=== PATIENT | female | born 1940 | race Caucasian/White ===

== ENCOUNTER 2018-12-07 15:51 | Inpatient (IN) | payer MEDICARE, OTHER ==
[~2018-12-07] VITALS: Ht 157.5 cm; Wt 74.8 kg
[~2018-12-07 15:51] MED LIST changes: -ALBU90OI INH; -Ferosul325 MG PO; -PANT40 PO
[2018-12-07 16:48] LABS: BASOPHILS ABSOLUTE AUTO 0.05 K/mm3 (0.00-0.23); BASOPHILS PERCENT AUTO 1 % (0-2); EOSINOPHILS ABSOLUTE AUTO 0.33 K/mm3 (0.00-0.68); EOSINOPHILS PERCENT AUTO 4 % (0-6); Hemoglobin 6.4 g/dL (11.5-16.0); IMMATURE GRAN ABSOLUTE AUTO 0.07 K/mm3 (0.00-0.10); IMMATURE GRAN PERCENT AUTO 1 % (0-1); LYMPHOCYTES ABSOLUTE AUTO 1.58 K/mm3 (0.84-5.20); LYMPHOCYTES PERCENT AUTO 19 % (21-46); MONOCYTES ABSOLUTE AUTO 0.52 K/mm3 (0.16-1.47); MONOCYTES PERCENT AUTO 6 % (4-13); Mean Corpuscular HGB 23.1 pg (26.0-34.0); Mean Corpuscular HGB Conc 26.7 g/dL (31.5-36.5); Mean Platelet Volume 10.3 fL (9.1-12.4); NEUTROPHILS ABSOLUTE AUTO 5.95 K/mm3 (1.96-9.15); NEUTROPHILS PERCENT AUTO 70 % (41-73); Platelet Count 417 K/mm3 (150-400); RDW Coefficient Variation 15.9 % (11.7-14.2); RDW Standard Deviation 49.9 fL (35.1-46.3); Red Blood Cell Count 2.77 M/mm3 (3.80-5.20)
[2018-12-07 16:50] LABS: Mean Corpuscular Volume 87 fL (80-100)
[2018-12-07 17:11] LABS: Alanine Aminotransfer (ALT/SGP 13 U/L (12-78); Albumin, Blood 3.7 g/dL (3.4-5.0); Albumin/Globulin Ratio 1.1 (0.8-1.8); Alk Phos 48 U/L (50-136); Anion Gap 6 mmol/L (6-16); Aspartate Aminotrans (AST/SGOT 12 U/L (12-37); Bilirubin, Total 0.4 mg/dL (0.1-1.0); Blood Urea Nitrogen 22 mg/dL (8-24); Bun/Creatinine Ratio 26.5 (12.0-20.0); CO2, Blood 29 mmol/L (21-32); Calcium, Blood 9.2 mg/dL (8.5-10.1); Chloride, Blood 106 mmol/L (98-108); Creatinine, Blood 0.83 mg/dL (0.40-1.00); Globulin, Blood 3.5 g/dL (2.2-4.0); Glomerular Filtration Rate >60 (60-); Glucose, Blood 111 mg/dL (70-99); Potassium, Blood 4.1 mmol/L (3.5-5.5); Sodium, Blood 141 mmol/L (136-145); Total Protein, Blood 7.2 g/dL (6.4-8.2)
[2018-12-07 17:14] LABS: Percent Saturation 1.9 % (15.0-50.0)
[2018-12-07] MEDS ORDERED: ALBU90OI INH (17:34)
--- NOTE | 2018-12-08 00:55 | NUR ---
PT HAS COMPLETED 2 UNITS PRBC W/OUT ADVERSE EFFECTS. VSS, NO COMPLAINTS, WILL CONTINUE TO MONITOR
[2018-12-08 02:10] LABS: Alanine Aminotransfer (ALT/SGP 11 U/L (12-78); Albumin, Blood 3.3 g/dL (3.4-5.0); Albumin/Globulin Ratio 1.1 (0.8-1.8); Alk Phos 46 U/L (50-136); Anion Gap 6 mmol/L (6-16); Aspartate Aminotrans (AST/SGOT 9 U/L (12-37); Blood Urea Nitrogen 19 mg/dL (8-24); Bun/Creatinine Ratio 22.1 (12.0-20.0); CO2, Blood 29 mmol/L (21-32); Calcium, Blood 8.5 mg/dL (8.5-10.1); Chloride, Blood 108 mmol/L (98-108); Creatinine, Blood 0.86 mg/dL (0.40-1.00); Glomerular Filtration Rate >60 (60-); Glucose, Blood 91 mg/dL (70-99); Potassium, Blood 3.9 mmol/L (3.5-5.5); Sodium, Blood 143 mmol/L (136-145); Total Protein, Blood 6.3 g/dL (6.4-8.2)
[2018-12-08 02:15] LABS: BASOPHILS ABSOLUTE AUTO 0.05 K/mm3 (0.00-0.23); BASOPHILS PERCENT AUTO 1 % (0-2); EOSINOPHILS ABSOLUTE AUTO 0.32 K/mm3 (0.00-0.68); EOSINOPHILS PERCENT AUTO 4 % (0-6); Hematocrit 28.9 % (33.0-51.0); Hematocrit 29.2 % (33.0-51.0); Hemoglobin 8.5 g/dL (11.5-16.0); Hemoglobin 8.6 g/dL (11.5-16.0); IMMATURE GRAN PERCENT AUTO 1 % (0-1); LYMPHOCYTES PERCENT AUTO 18 % (21-46); MONOCYTES ABSOLUTE AUTO 0.47 K/mm3 (0.16-1.47); MONOCYTES PERCENT AUTO 6 % (4-13); Mean Corpuscular HGB 25.5 pg (26.0-34.0); Mean Corpuscular HGB Conc 29.1 g/dL (31.5-36.5); Mean Corpuscular Volume 88 fL (80-100); Mean Platelet Volume 10.5 fL (9.1-12.4); NEUTROPHILS ABSOLUTE AUTO 5.07 K/mm3 (1.96-9.15); NEUTROPHILS PERCENT AUTO 69 % (41-73); Platelet Count 312 K/mm3 (150-400); RDW Coefficient Variation 16.1 % (11.7-14.2); RDW Standard Deviation 51.2 fL (35.1-46.3); Red Blood Cell Count 3.33 M/mm3 (3.80-5.20); White Blood Cell Count 7.31 K/mm3 (4.00-11.30)
--- NOTE | 2018-12-08 05:26 | NUR ---
VSS, AFEBRILE, A/O, PLEASANT AND COOPERATIVE. PT AMBULATES WELL BUT REPORTS FEELING VERY WEAK, SBA TO BR, 2 UNITS OF PRBC TRANSFUSED PER ORDER, PT TOELRATED TRANSFUSION W/OUT ADVERSE EFFECTS, NO OBVIOUS SIGNS OF BLEEDING NOTED. WILL REPORT TO ON-COMING SHIFT.
[2018-12-08 08:59] LABS: Hematocrit 29.6 % (33.0-51.0); Hemoglobin 8.7 g/dL (11.5-16.0)
[2018-12-08 13:34] LABS: Hematocrit 31.6 % (33.0-51.0); Hemoglobin 9.2 g/dL (11.5-16.0)
--- NOTE | 2018-12-08 18:10 | NUR ---
SHIFT SUMMARY NO ACUTE CHANGES. PATIENT DENIES PAIN, NAUSEA, OR SHORTNESS OF BREATH. PATIENT TO HAVE ENDOSCOPY AND COLONOSCOPY TOMORROW. PATIENT WORKING ON [place] NOW. DR. MCNEIL MET WITH PATIENT AND FAMILY TODAY. PATIENT UP SBA TO BR. CALL LIGHT IN REACH, WILL CONTINUE TO MONITOR.
[2018-12-08 20:19] LABS: Hematocrit 30.3 % (33.0-51.0); Hemoglobin 8.8 g/dL (11.5-16.0)
[2018-12-09 05:13] LABS: BASOPHILS ABSOLUTE AUTO 0.02 K/mm3 (0.00-0.23); BASOPHILS PERCENT AUTO 0 % (0-2); EOSINOPHILS ABSOLUTE AUTO 0.18 K/mm3 (0.00-0.68); EOSINOPHILS PERCENT AUTO 3 % (0-6); Hematocrit 27.6 % (33.0-51.0); IMMATURE GRAN ABSOLUTE AUTO 0.04 K/mm3 (0.00-0.10); IMMATURE GRAN PERCENT AUTO 1 % (0-1); LYMPHOCYTES ABSOLUTE AUTO 0.86 K/mm3 (0.84-5.20); LYMPHOCYTES PERCENT AUTO 13 % (21-46); MONOCYTES ABSOLUTE AUTO 0.39 K/mm3 (0.16-1.47); MONOCYTES PERCENT AUTO 6 % (4-13); Mean Corpuscular HGB 26.1 pg (26.0-34.0); Mean Corpuscular Volume 90 fL (80-100); Mean Platelet Volume 10.6 fL (9.1-12.4); NEUTROPHILS ABSOLUTE AUTO 5.04 K/mm3 (1.96-9.15); NEUTROPHILS PERCENT AUTO 77 % (41-73); Platelet Count 266 K/mm3 (150-400); RDW Coefficient Variation 16.3 % (11.7-14.2); RDW Standard Deviation 53.8 fL (35.1-46.3); Red Blood Cell Count 3.06 M/mm3 (3.80-5.20); White Blood Cell Count 6.53 K/mm3 (4.00-11.30)
[2018-12-09 05:35] LABS: Anion Gap 8 mmol/L (6-16); Blood Urea Nitrogen 10 mg/dL (8-24); CO2, Blood 25 mmol/L (21-32); Calcium, Blood 8.1 mg/dL (8.5-10.1); Chloride, Blood 113 mmol/L (98-108); Creatinine, Blood 0.67 mg/dL (0.40-1.00); Glomerular Filtration Rate >60 (60-); Glucose, Blood 88 mg/dL (70-99); Potassium, Blood 3.6 mmol/L (3.5-5.5); Sodium, Blood 146 mmol/L (136-145)
--- NOTE | 2018-12-09 05:50 | NUR ---
SHIFT SUMMARY PT PLEASANT AND COOPERATIVE. PT DRANK ALMOST ALL OF HER GOLYTELY BOWEL PREP, ONLY LEAVING A SMALL AMOUNT IN THE CONTAINER STATING THAT SHE "COULDN'T DRINK ANYMORE". STOOL WATERY AND LIGHT BROWN, ALMOST COMPLETELY CLEAR. NO BLOOD NOTED IN STOOL. PT NPO SINCE MIDNIGHT FOR COLONOSCOPY/ENDOSCOPY TODAY. PT DENIED ANY DIZZINESS THIS EVENING. AMBULATED INDEPENDENTLY TO THE BSC. NEEDS SBA IF GOING ANY FURTHER. DENIES ANY PAIN OR NAUSEA. LUNG SOUNDS WITH SOME CRACKLES IN THE BASES. RT RECOMMENDING PT MIGHT POSSIBLY NEED LASIX. PT IN NO ACUTE RESPIRATORY DISTRESS, WILL PASS ON TO DAY SHIFT TO SPEAK WITH DAY HOSPITALIST. OTHERWISE NO ACUTE CHANGES. VITAL SIGNS STABLE. WILL CONTINUE TO MONITOR.
--- NOTE | 2018-12-09 07:40 | NUR ---
INTO [facility] FROM [facility] FLOOR RECIEVED REPORT ADN ADMISSION TO UNIT STARTED. Patient confirms NPO status and agrees with scheduled surgery.
[2018-12-09] MEDS ORDERED: PANT40 PO (12:51)
[2018-12-09] MEDS ORDERED: Ferosul325 MG PO (12:56)
--- NOTE | 2018-12-09 14:06 | NUR ---
PT DISCHARGED PT DISCAHRGED AT 1345. PT IN STABLE CONDITION WITH VSS. PT & FAMILY EDUCATED ON DC INSTRUCTIONS, NEW MEDS, & FOLLOW UP APPOINTMENTS. PT STATED NO FURTHER QUESTIONS. PT WHEELED OUT & DRIVEN HOME BY FAMILY.
== END 2018-12-09 13:45 | disposition home or self-care (01) | DRG 379 ==
LOC: ER 15:51 → MEDS 17:38 → ENPENDDIS 12-09 12:28 → MEDS 12-09 13:45
PROVIDERS: Family Medicine; Internal Medicine Gastroenterology; Physician Assistant; ADMIT Internal Medicine Endocrinology, Diabetes & Metabolism
PROC: 30233N1 Transfusion of Nonautologous Red Blood Cells into Peripheral Vein, Percutaneous Approach (ICD-10-PCS; 2018-12-07)
PROC: 0DJ08ZZ Inspection of Upper Intestinal Tract, Via Natural or Artificial Opening Endoscopic (ICD-10-PCS; principal; 2018-12-09 08:00)
PROC: 0W3P8ZZ Control Bleeding in Gastrointestinal Tract, Via Natural or Artificial Opening Endoscopic (ICD-10-PCS; 2018-12-09 08:00)
DX: K57.31 Diverticulosis of large intestine without perforation or abscess with bleeding (principal); K31.811 Angiodysplasia of stomach and duodenum with bleeding; D50.9 Iron deficiency anemia, unspecified; I10 Essential (primary) hypertension; E11.9 Type 2 diabetes mellitus without complications; J44.9 Chronic obstructive pulmonary disease, unspecified; Z99.81 Dependence on supplemental oxygen; Z87.891 Personal history of nicotine dependence; K22.2 Esophageal obstruction; K44.9 Diaphragmatic hernia without obstruction or gangrene; K64.8 Other hemorrhoids; I99.8 Other disorder of circulatory system; K57.30 Diverticulosis of large intestine without perforation or abscess without bleeding
CPT/HCPCS: 36415; 36416; 36430; 80048; 80053; 82728; 82947; 83540; 83550; 85014; 85018; 85025; 86850; 86900; 86901; 86923; 88305; 88342; 93005; 93010; 94640; 94760; 96374; 99285-25; C9113; J2704; J7030; J7120; P9016

== ENCOUNTER → 2018-12-07 | Outpatient (CLI) | payer MEDICARE, OTHER ==
[~2018-12-07] MED LIST: ALBU90OI INH; ASPI81CH PO; FENO54 PO; Ferosul325 MG PO; LOVA40 PO; METF500C PO; PANT40 PO; SERT100 PO; Ziac 2.5-6.251 EACH PO; Zyloprim300 MG PO
[2018-12-07 15:29] LABS: Hematocrit 21.5 % (33.0-51.0)
[2018-12-07 16:28] LABS: Hemoglobin 5.9 g/dL (11.5-16.0)
== END ==
LOC: LAB SHORT 15:26 → LAB EV 15:26
PROVIDERS: Physician Assistant
DX: D50.9 Iron deficiency anemia, unspecified (principal)
CPT/HCPCS: 85014; 85018

== ENCOUNTER → 2019-02-26 | Outpatient (CLI) | payer MEDICARE, OTHER ==
[~2019-02-26] MED LIST changes: +ALBU90OI INH; +Ferosul325 MG PO; +PANT40 PO
[2019-02-27 05:55] LABS: Stool Occult Bld Immuno 1 Negative (NEGATIVE)
== END | disposition home or self-care (01) ==
LOC: LAB EV 12:45
PROVIDERS: Internal Medicine Gastroenterology
DX: D50.9 Iron deficiency anemia, unspecified (principal)
CPT/HCPCS: 82274

== ENCOUNTER → 2019-02-27 | Outpatient (CLI) | payer MEDICARE, OTHER ==
[2019-02-28 07:43] LABS: Stool Occult Bld Immuno 1 Negative (NEGATIVE)
== END | disposition home or self-care (01) ==
LOC: LAB EV 13:00
PROVIDERS: Internal Medicine Gastroenterology
DX: D50.9 Iron deficiency anemia, unspecified (principal)
CPT/HCPCS: 82274

== ENCOUNTER 2022-06-30 09:22 | Inpatient (IN) | payer MEDICARE, OTHER ==
[~2022-06-30] VITALS: Ht 165.1 cm; Wt 71.4 kg
--- NOTE | 2022-06-30 18:43 | NUR ---
PT DENIES NEED FOR PAIN MEDS AT THIS TIME. REPORTS PAIN IS CURRENTLY 3/10 TO LEFT HIP AND LEFT SHOULDER. ICE IN PLACE TO LEFT SHOULDER. PT NPO AFTER MIDNIGHT FOR SURGERY IN AM
[2022-07-01 04:30] LABS: BASOPHILS ABSOLUTE AUTO 0.06 K/mm3 (0.00-0.23); BASOPHILS PERCENT AUTO 1 % (0-2); EOSINOPHILS ABSOLUTE AUTO 0.16 K/mm3 (0.00-0.68); EOSINOPHILS PERCENT AUTO 2 % (0-6); Hematocrit 32.4 % (33.0-51.0); Hemoglobin 10.6 g/dL (11.5-16.0); IMMATURE GRAN ABSOLUTE AUTO 0.06 K/mm3 (0.00-0.10); IMMATURE GRAN PERCENT AUTO 1 % (0-1); LYMPHOCYTES ABSOLUTE AUTO 1.27 K/mm3 (0.84-5.20); LYMPHOCYTES PERCENT AUTO 12 % (21-46); MONOCYTES ABSOLUTE AUTO 0.73 K/mm3 (0.16-1.47); MONOCYTES PERCENT AUTO 7 % (4-13); Mean Corpuscular HGB 31.3 pg (26.0-34.0); Mean Corpuscular HGB Conc 32.7 g/dL (31.5-36.5); Mean Corpuscular Volume 96 fL (80-100); Mean Platelet Volume 10.8 fL (9.1-12.4); NEUTROPHILS ABSOLUTE AUTO 8.44 K/mm3 (1.96-9.15); NEUTROPHILS PERCENT AUTO 79 % (41-73); Platelet Count 150 K/mm3 (150-400); RDW Coefficient Variation 13.9 % (11.7-14.2); RDW Standard Deviation 48.4 fL (35.1-46.3); Red Blood Cell Count 3.39 M/mm3 (3.80-5.20); White Blood Cell Count 10.72 K/mm3 (4.00-11.30)
[2022-07-01 04:45] LABS: Magnesium, Blood 2.3 mg/dL (1.6-2.4)
[2022-07-01 04:46] LABS: Albumin, Blood 3.4 g/dL (3.4-5.0); Anion Gap 7 mmol/L (6-16); Blood Urea Nitrogen 33 mg/dL (8-24); Bun/Creatinine Ratio 24.3 (12.0-20.0); CO2, Blood 31 mmol/L (21-32); Calcium, Blood 9.3 mg/dL (8.5-10.1); Chloride, Blood 99 mmol/L (98-108); Creatinine, Blood 1.36 mg/dL (0.40-1.00); Glomerular Filtration Rate 39 (60-); Glucose, Blood 133 mg/dL (70-99); Phosphorus, Blood 4.3 mg/dL (2.5-4.9); Potassium, Blood 4.3 mmol/L (3.5-5.5); Sodium, Blood 137 mmol/L (136-145)
--- NOTE | 2022-07-01 05:40 | NUR ---
BEVEL OPERATOR SUMMARY NO ACUTE CHANGES. PT AAOX4 AND VERY PLEASANT. MAKES NEEDS KNOWN. MEDICATED FOR PAIN X1 WITH TYLENOL AND X1 WITH IV MORPHINE 1MG. PT RESPONDED WELL TO MORPHINE AND HAS BEEN ABLE TO REST. INCONTINENT OF URINE, ATTENDS CHANGED NEEDED. NPO SINCE MIDNIGHT ASIDE FROM DOSE OF TYLENOL FOR HIP SURGERY LATER TODAY. PRE SURGICAL WIPE DOWN COMPLETED. VSS, WILL CONTINUE TO MONITOR.
--- NOTE | 2022-07-01 12:06 | NUR ---
1137 to or. pts daughter, madelin at bedside
--- NOTE | 2022-07-01 15:03 | NUR ---
returned to room. pt drowsy, answers questions appropriately. left hip aquacell clean dry and intact. pt moves bilat legs spontaneously. bilat feet cool with capillary refill of less than 3 seconds. pt denies numbness or tingling. left arm sling in place, fingers cool denies numbness or tingling, wiggles fingers when asked to do so. pt reports pain is adequately controlled. pts daughter at bedside
--- NOTE | 2022-07-01 15:09 | NUR ---
WHILE IN PACU SHE WAS PLEASANT ORIENTED TO PLACE UNDERSTANDS SHE HAS HAD HER HIP FIXED. BP FLUCTUATES BROADLY PT FEELS FINE T/O THESE CHANGES . LOOKING AT HER RECORD THIS IS NOT NEW FOR HER .
--- NOTE | 2022-07-01 17:05 | NUR ---
PT REPORTS PAIN ADEQUATELY CONTROLLED . OOB TO COMMODE WITH 1 PERSON ASSIST, PER MAGNETO ELECTRICIAN PT SOB WITH ACTIVITY BUTNSTATED THAT IT WAS HER USUAL LEVEL OF SOB. LEFT HIP DRESSING DRY AND INTACT.
[2022-07-02 04:58] LABS: BASOPHILS ABSOLUTE AUTO 0.12 K/mm3 (0.00-0.23); BASOPHILS PERCENT AUTO 1 % (0-2); EOSINOPHILS ABSOLUTE AUTO 0.01 K/mm3 (0.00-0.68); EOSINOPHILS PERCENT AUTO 0 % (0-6); Hematocrit 27.9 % (33.0-51.0); IMMATURE GRAN ABSOLUTE AUTO 0.23 K/mm3 (0.00-0.10); IMMATURE GRAN PERCENT AUTO 1 % (0-1); LYMPHOCYTES ABSOLUTE AUTO 0.66 K/mm3 (0.84-5.20); LYMPHOCYTES PERCENT AUTO 4 % (21-46); MONOCYTES ABSOLUTE AUTO 1.02 K/mm3 (0.16-1.47); MONOCYTES PERCENT AUTO 6 % (4-13); Mean Corpuscular HGB 30.7 pg (26.0-34.0); Mean Corpuscular HGB Conc 32.3 g/dL (31.5-36.5); Mean Corpuscular Volume 95 fL (80-100); Mean Platelet Volume 11.4 fL (9.1-12.4); NEUTROPHILS ABSOLUTE AUTO 14.34 K/mm3 (1.96-9.15); NEUTROPHILS PERCENT AUTO 88 % (41-73); Platelet Count 181 K/mm3 (150-400); RDW Standard Deviation 48.2 fL (35.1-46.3); Red Blood Cell Count 2.93 M/mm3 (3.80-5.20); White Blood Cell Count 16.38 K/mm3 (4.00-11.30)
[2022-07-02 05:18] LABS: Anion Gap 14 mmol/L (6-16); Blood Urea Nitrogen 31 mg/dL (8-24); Bun/Creatinine Ratio 23.7 (12.0-20.0); CO2, Blood 22 mmol/L (21-32); Calcium, Blood 8.8 mg/dL (8.5-10.1); Chloride, Blood 100 mmol/L (98-108); Creatinine, Blood 1.31 mg/dL (0.40-1.00); Glomerular Filtration Rate 41 (60-); Glucose, Blood 233 mg/dL (70-99); Phosphorus, Blood 4.3 mg/dL (2.5-4.9); Potassium, Blood 4.2 mmol/L (3.5-5.5); Sodium, Blood 136 mmol/L (136-145)
--- NOTE | 2022-07-02 05:50 | NUR ---
TALENT SOURCING SPECIALIST SUMMARY PT HAS BEEN VERY CONFUSED ALL NIGHT. ABLE TO TELL ME HER NAME BUT DOES NOT ANSWER QUESTIONS APPROPRIATELY AND DOESNT FOLLOW DIRECTIONS WELL. PREVIOUS NIGHT PT WAS ORIENTED AND ANSWERING QUESTIONS APPROPRIATELY. PER REPORT FROM DAY SHIFT RN MARIANA, PT SEEMED ORIENTED RIGHT AFTER COMING BACK FROM SURGERY BUT BECAME QUITE CONFUSED AFTER RECIEVING A DOSE OF 2MG IV MORPHINE, PT HAS REMAINED THAT WAY THROUGH THE NIGHT. PT VERY RESTLESS AND HAS NOT SLEPT MUCH TONIGHT. HR ALSO TRENDED UP A BIT TO 120'S FOR A BIT BUT HAS SINCE GONE DOWN TO 100'S. NEW IV PLACED BY ICU CONSULTING BUSINESS DEVELOPER TO CONTINUE FLUIDS AND ABX. IV INFILTRATED FAIRLY QUICKLY AND POWERGLIDE PLACED BY SHREDDING SPECIALIST LONNIE. NOTIFIED DR TEJEDA OF PTS MENTATION AND RESTLESSNESS AND HOW IT HAS NOT IMPROVED AT ALL. RECIEVED ORDER FROM DR TEJEDA TO 5 MG IM ZYPREXA IF NEEDED TO HELP PT REST. DISCUSSED THIS WITH ICU CHARGE AND NURSING MEAT PULLER AND DECIDED AGAINST USING ZYPREXA AT THIS TIME BASED ON OUR CLINICAL JUDGEMENT. SOFT BP THIS AM AFTER NEW IV PLACED. BP WAS TAKEN FOR FIRST TIME ON FOREARM WHEN IT WAS LOW NEW IV AND L ARM FX/SLING PREVENTED BP IN OTHER LOCATION. AFTER FIRST IV INFILTRATED, BP WAS TAKEN ON UPPER ARM AND WAS IMPROVED TO 91/58 WITH MAP OF 68. PT HOOKED BACK UP TO IV FLUIDS, WE CONTINUE TO MONITOR BP AND OTHER VS. PT RESTING AT THIS TIME. WCTM.
--- NOTE | 2022-07-02 07:52 | NUR ---
sbp 80's after fluids started again. notified dr bettencourt who gave order for 500 ml bolus of NS. Report given to day shift ISAI gomez.
--- NOTE | 2022-07-02 07:56 | NUR ---
500ML BOLUS COMPLETED. THIS RN RECHECKED BLOOD PRESSURE. 76/58 ON RIGHT FOREARM, RECHECKED ON RIGHT LEG, READING OF 88/65. PATIENT DENIES ALL SYMPTOMS OF DIZZINESS, LIGHTHEADEDNESS. DR SMALLS NOTIFIED VIA TELEPHONE, STATED HE WOULD COME SEE PATIENT. NO ORDERS RECIEVED.
--- NOTE | 2022-07-02 08:00 | NUR ---
PATIENT IS ALERT, BUT UNABLE TO ANSWER ORIENTATION QUESTIONS SUCH NAME, , LOCATION, DATE, OR TIME. DOES RECALL EVENT OF FALLING THAT BROUGHT HER IN. FAMILY MEMBER AT BEDSIDE CONCERNED WITH DECREASE IN MENTATION, REPORTS PATIENT TO BE "FUZZY WITH DETAILS", BUT "NOTHING LIKE THIS". BLOOD PRESSURE REMAINS SOFT, PATIENT ASYMPTOMATIC. MD NOTIFIED PER PREVIOUS NOTE. PUPILS ARE EQUAL & REACTIVE, PATIENT FOLLOWS FINGER APPROPRIATELY, HAS LIMITED RANGE OF LEFT SHOULDER D/T FX FROM FALL, MOVES RIGHT ARM APPROPRIATELY. DR LANGFORD AT BEDSIDE AND STATES THAT HE FEELS PATIENT SHOULD WORK WITH PHYSICAL THERAPY AND LET ANESTHESIA/PAIN MEDICATION TO WELDON OFF IN HOPES DELERIUM WILL IMPROVE. GAVE VERBAL ORDERS TO ORDER SPEECH THERAPY EVAL D/T DIFFICULTY SWALLOWING PILL WITH APPLESAUCE THIS AM AND POSSIBLE ASPIRATION RISK. MORNING MEDICATIONS HELD FOR THIS REASON, AWAITING EVAL.
--- NOTE | 2022-07-02 18:48 | NUR ---
SHIFT SUMMARY PATIENT IS POD 1 LEFT HIP PINNING, X1 AQUACEL IS C/D/I. LEFT ARM IS BRUISED FROM ELBOW TO SHOULDER, IN SLING, ALTHOUGH PATIENT IS NONCOMPLIANT AND WILL PULL ARM OUT OF SLING CONTINUOUSLY. PATIENT WORKED WITH PT/OT & NEEDS 2P MOD-MAX ASSIST, UNABLE TO FOLLOW WEIGHT-BEARING STATUS OF TTWB. PATIENT REPORTED TO BE A&O X4 PRIOR TO SURGERY, HOWEVER WAS ALERT BUT UNORIENTED W/O ABILITY TO REORIENT THROUGHOUT THIS SHIFT. PATIENT DOES NOT ANSWER QUESTIONS APPROPRIATLY, MD AWARE, SEE PREVIOUS NOTE. PER PREVIOUS RN'S, MENTAL STATUS CHAGE OCCURRED YESTERDAY AT SOME POINT. PATIENT CHANGED TO PUREE DIET THIS SHIFT D/T EVALUATION FROM SPEECH THERAPY. DOES WELL W/ PUREE'S, HOWEVER, NEEDS REMINDERS TO SWALLOW AFTER EACH BITE. HAS NOT DEMONSTARTED USE OF CALL LIGHT. WILL REPORT TO ONCOMING RN.
[2022-07-03 04:39] LABS: BASOPHILS ABSOLUTE AUTO 0.12 K/mm3 (0.00-0.23); BASOPHILS PERCENT AUTO 1 % (0-2); EOSINOPHILS ABSOLUTE AUTO 0.37 K/mm3 (0.00-0.68); EOSINOPHILS PERCENT AUTO 2 % (0-6); Hematocrit 26.2 % (33.0-51.0); Hemoglobin 8.2 g/dL (11.5-16.0); IMMATURE GRAN ABSOLUTE AUTO 0.36 K/mm3 (0.00-0.10); IMMATURE GRAN PERCENT AUTO 2 % (0-1); LYMPHOCYTES ABSOLUTE AUTO 3.74 K/mm3 (0.84-5.20); LYMPHOCYTES PERCENT AUTO 18 % (21-46); MONOCYTES ABSOLUTE AUTO 1.28 K/mm3 (0.16-1.47); MONOCYTES PERCENT AUTO 6 % (4-13); Mean Corpuscular HGB 30.7 pg (26.0-34.0); Mean Corpuscular HGB Conc 31.3 g/dL (31.5-36.5); Mean Corpuscular Volume 98 fL (80-100); Mean Platelet Volume 11.9 fL (9.1-12.4); NEUTROPHILS ABSOLUTE AUTO 15.53 K/mm3 (1.96-9.15); NEUTROPHILS PERCENT AUTO 73 % (41-73); Platelet Count 176 K/mm3 (150-400); RDW Coefficient Variation 14.1 % (11.7-14.2); RDW Standard Deviation 49.7 fL (35.1-46.3); Red Blood Cell Count 2.67 M/mm3 (3.80-5.20)
[2022-07-03 04:56] LABS: Albumin, Blood 2.8 g/dL (3.4-5.0); Anion Gap 13 mmol/L (6-16); Blood Urea Nitrogen 41 mg/dL (8-24); Bun/Creatinine Ratio 33.3 (12.0-20.0); CO2, Blood 23 mmol/L (21-32); Calcium, Blood 8.7 mg/dL (8.5-10.1); Chloride, Blood 99 mmol/L (98-108); Creatinine, Blood 1.23 mg/dL (0.40-1.00); Glomerular Filtration Rate 44 (60-); Glucose, Blood 237 mg/dL (70-99); Phosphorus, Blood 3.6 mg/dL (2.5-4.9); Potassium, Blood 3.5 mmol/L (3.5-5.5); Sodium, Blood 135 mmol/L (136-145)
--- NOTE | 2022-07-03 07:15 | NUR ---
DR LANGFORD AT BEDSIDE. PATIENT IS SHOWING IMPROVED MENTATION. DR LANGFORD VERBALIZED CONCERN FOR UTI, GAVE VERBAL ORDERS TO INSERT STRAIGHT CATH & OBTAIN UA W/ CULTURE. ALSO GAVE VERBAL ORDERS TO START IV ROCEPHIN DAILY. ORDERS ENTERED BY THIS RN.
--- NOTE | 2022-07-03 09:15 | NUR ---
DR YI AT BEDSIDE. DISCUSSED PLAN WITH PATIENT & SON AT BEDSIDE. THIS RN UPDATED DR YI ON PATIENTS INABILITY TO FOLLOW TTWB STATUS. DR YI VERBALIZED THAT HE IS OKAY WITH THAT, WOULD LIKE TO STAY CAUTIOUS WITH WEIGHT-BEARING, BUT PATIENTS SURGERY WILL BE OKAY IF PATIENT USES MORE WEIGHT ON THAT LEFT LEG.
[2022-07-03 09:33] LABS: Source, Urine Straight Cath
[2022-07-03 10:06] LABS: Bilirubin, Urine Neg (Neg); Blood, Urine 3+ (Neg); Glucose Qualitative, Urine Neg (Neg); Ketones, Urine 1+ (Neg); Leukocyte Esterase, Urine 3+ (Neg); Nitrite, Urine Neg (Neg); Protein, Urine 2+ (Neg); Urobilinogen, Urine NORM (Normal)
[2022-07-03 10:22] LABS: Appearance, Urine Hazy (Clear); Color, Urine Yellow (P-Yellow)
[2022-07-03 10:23] LABS: Bacteria Few /hpf; Squamous Epithelial Cells Few /hpf (Few)
--- NOTE | 2022-07-03 16:09 | NUR ---
SHIFT SUMMARY PATIENT IS POD 2 LEFT HIP PINNING. NO ACUTE CHANGES THIS SHIFT. DRESSING REMAINS C/D/I. PAIN MANAGED PER EMAR. PATIENT UP TO CHAIR W/ 2P MOD-MAX ASSIST W/ GB. LEFT SHOULDER IN SLING & SIGNIFICANTLY BRUISED. PATIENT HAS HAD BETTER COMPLIANCE W/SLING THIS SHIFT. APPETITE IMPROVED ALTHOUGH STILL HAD MINIMAL PO INTAKE. INCONTINENT OF URINE, ATTENDS CHANGED PRN. MENTATION MUCH IMPROVED THIS SHIFT COMPARED TO YESTERDAY DAY SHIFT. CALLVidal PANDEY IN REACH, WILL REPORT TO ONCOMING RN AT 1900.
[2022-07-04 05:32] LABS: BASOPHILS ABSOLUTE AUTO 0.03 K/mm3 (0.00-0.23); BASOPHILS PERCENT AUTO 1 % (0-2); EOSINOPHILS ABSOLUTE AUTO 0.16 K/mm3 (0.00-0.68); EOSINOPHILS PERCENT AUTO 3 % (0-6); Hemoglobin 7.1 g/dL (11.5-16.0); IMMATURE GRAN ABSOLUTE AUTO 0.04 K/mm3 (0.00-0.10); IMMATURE GRAN PERCENT AUTO 1 % (0-1); LYMPHOCYTES PERCENT AUTO 13 % (21-46); MONOCYTES ABSOLUTE AUTO 0.57 K/mm3 (0.16-1.47); MONOCYTES PERCENT AUTO 9 % (4-13); Mean Corpuscular HGB 31.6 pg (26.0-34.0); Mean Corpuscular HGB Conc 32.3 g/dL (31.5-36.5); Mean Corpuscular Volume 98 fL (80-100); Mean Platelet Volume 12.5 fL (9.1-12.4); NEUTROPHILS ABSOLUTE AUTO 4.75 K/mm3 (1.96-9.15); NEUTROPHILS PERCENT AUTO 75 % (41-73); Platelet Count 102 K/mm3 (150-400); RDW Coefficient Variation 14.3 % (11.7-14.2); RDW Standard Deviation 50.6 fL (35.1-46.3); Red Blood Cell Count 2.25 M/mm3 (3.80-5.20); White Blood Cell Count 6.35 K/mm3 (4.00-11.30)
--- NOTE | 2022-07-04 05:49 | NUR ---
SUMMARY PT MORE ALERT AND RESPONDING APPROPIATELY. PT PAIN HAS BEEN MANAGED WELL. PT WAS FOUND TO BE RETAINING URINE AND DR TEJEDA ORDER BLADDER SCAN AND STRAIGHT CATH. 450 ML CLEAR YELLOW URINE REMOVED. PT HAS BEEN SLEEPING WELL OFF AND ON. CALL LIGHT IN REACH AND BED ALARM ON.
[2022-07-04 06:10] LABS: Albumin, Blood 2.3 g/dL (3.4-5.0); Anion Gap 6 mmol/L (6-16); Blood Urea Nitrogen 31 mg/dL (8-24); Bun/Creatinine Ratio 41.3 (12.0-20.0); CO2, Blood 26 mmol/L (21-32); Calcium, Blood 8.3 mg/dL (8.5-10.1); Chloride, Blood 107 mmol/L (98-108); Creatinine, Blood 0.75 mg/dL (0.40-1.00); Glomerular Filtration Rate 79 (60-); Glucose, Blood 98 mg/dL (70-99); Magnesium, Blood 2.3 mg/dL (1.6-2.4); Phosphorus, Blood 2.8 mg/dL (2.5-4.9); Potassium, Blood 3.6 mmol/L (3.5-5.5); Sodium, Blood 139 mmol/L (136-145)
[2022-07-04 14:18] LABS: Hematocrit 24.9 % (33.0-51.0); Hemoglobin 7.7 g/dL (11.5-16.0)
--- NOTE | 2022-07-04 19:38 | NUR ---
SHIFT SUMMARY PATIENT POD 3 LEFT HIP FX REPAIR. LEFT HUMERUS FX NON-SURGICAL IN SLING. LARGE BRUISING TO LEFT HIP AND SHOULDER WITH SWELLING. LEFT HIP AQUACEL C/D/I. PATIENT GENERALIZED WEAKNESS AND SLOW TO MOVE. 1 PERSON MOD ASSIST TO EDGE OF BED AND TO DANGLE. UNMOTIVATED AND FEARFUL. LS WHEEZY THROUGHOUT SHIFT. 2L O2 VIA NC. PRN NEBS. ABOUT 1800 PATIENT BECAME ANXIOUS, SWEATY AND OVERHEATED. STATED SHE HAD CHEST TIGHTNESS AND DIFFICULTY BREATHING. VS SHOWED MILD DESAT TO 89% AND SOFT BP ABOUT [address] LOVE AND OBTAINED ORDERS FOR STAT CHEST XRAY, EKG, ASPIRIN, AND NITRO, AND TELE. MEDS GIVEN AND IMAGING COMPLETED. DR LOVE STATED EKG WAS UNCHANGED FROM PRIORS. GAVE ORDER FOR 250 ML BOLUS OF NS. THIS WAS COMPLETED. BP RESPONDED TO 110 SYSTOLIC. TROPONINS ORDERED.
--- NOTE | 2022-07-04 21:10 | NUR ---
TROPONIN: DR TEJEDA NOTIFIED OF ELEVATED TROPONIN. PLAN FOR MD TO REVIEW PT'S CHART AND PLACE ADDITIONAL ORDERS. WILL NOTIFY PRIMARY TN.
[2022-07-04 22:30] LABS: Anti-Xa UFH, PHA Monitoring 0.15 IU/mL; International Normalized Ratio 1.16; Prothrombin Time Results 12.1 Sec (9.7-11.5)
--- NOTE | 2022-07-04 23:03 | NUR ---
CHEST PAIN AT APPROX 2220, PT REPORTED CHEST PAIN THAT RADIATED TO HER UPPER BACK AND HAD A FEELING OF IMPENDING DOOM AND STATED "I FEEL LIKE I AM ILL AND I AM GOING TO ". PT ALSO APPEARED TO BE COOL AND CLAMMY. CAGE SHIFT MANAGER NOTIFIED. EKG AND VS OBTAINED. M.D. NOTIFIED OF PT CHANGE IN SYMPTOMS. HEPARIN GTT STARTED + ORAL MEDS GIVEN PER EMAR. DR. PARRISH AT BEDSIDE AT APPROX 2240. VERBAL ORDER TO TRANSFER TO PCU. PERSONAL BELONGINGS GATHERED. WAITING TO REPORT OFF TO FOOT ORTHOPEDIST.
--- NOTE | 2022-07-04 23:44 | NUR ---
TRANSFERRED TO PCU AT THIS TIME. CALLED PT SON AND LEFT VOICEMAIL TO CALL BACK FOR AN UPDATE.
[2022-07-05 06:31] LABS: BASOPHILS ABSOLUTE AUTO 0.04 K/mm3 (0.00-0.23); BASOPHILS PERCENT AUTO 1 % (0-2); EOSINOPHILS ABSOLUTE AUTO 0.12 K/mm3 (0.00-0.68); EOSINOPHILS PERCENT AUTO 2 % (0-6); Hematocrit 23.1 % (33.0-51.0); Hemoglobin 7.2 g/dL (11.5-16.0); IMMATURE GRAN ABSOLUTE AUTO 0.09 K/mm3 (0.00-0.10); IMMATURE GRAN PERCENT AUTO 2 % (0-1); LYMPHOCYTES PERCENT AUTO 17 % (21-46); MONOCYTES PERCENT AUTO 10 % (4-13); Mean Corpuscular HGB Conc 31.2 g/dL (31.5-36.5); Mean Corpuscular Volume 100 fL (80-100); Mean Platelet Volume 12.2 fL (9.1-12.4); NEUTROPHILS ABSOLUTE AUTO 4.11 K/mm3 (1.96-9.15); NEUTROPHILS PERCENT AUTO 69 % (41-73); NRBC ABSOLUTE 0.03 K/mm3 (0.00-0.02); NRBC Auto 0.5 /100 WBC (0.0-0.2); Platelet Count 134 K/mm3 (150-400); RDW Coefficient Variation 14.5 % (11.7-14.2); RDW Standard Deviation 51.6 fL (35.1-46.3); Red Blood Cell Count 2.32 M/mm3 (3.80-5.20); White Blood Cell Count 5.96 K/mm3 (4.00-11.30)
--- NOTE | 2022-07-05 06:43 | NUR ---
SHIFT SUMMARY THIS RN ASSUMED CARE OF PT AT 2330. VSS. PT DENIES CHEST PAIN OR CHEST PRESSURE THROUGHOUT SHIFT. PT RESTED MOST OF THE SHIFT. ARM SLING IN PLACE. L HIP DRESSING HAD COME OFF JUST PRIOR TO ARRIVAL ON PCU; NEW DRESSING PLACED UPON ARRIVAL. MORNING LABS SHOWED TROPONIN OF 507, FROM EARLIER TROPONIN OF 534. NO ACUTE CHANGES OR CONCERNS DURING SHIFT. CARDIOLOGY TO SEE PT TODAY.
[2022-07-05 07:03] LABS: Bun/Creatinine Ratio 36.5 (12.0-20.0); Calcium, Blood 8.6 mg/dL (8.5-10.1); Creatinine, Blood 0.85 mg/dL (0.40-1.00); Potassium, Blood 3.9 mmol/L (3.5-5.5)
--- NOTE | 2022-07-05 07:20 | NUR ---
AM ASSESSMENT: Pt resting in bed at this time. Son at bedside. Pt currently denies having any chest pain or SOB. States that she has a little bit of L shoulder pain. L arm sling on but not currently tight. Large amount of bruising on L hummerous/arm. L hip with dressing intact, bruising noted. LS with crackles throughout. CUrrently on 2L per N/C, home dose, biox >95%. HR reg, tele shows NSR in the 70-80's. Pulses palp. Dr. Julien in to see Pt. Will follow through with any new orders. Call light in reach. Will monitor.
--- NOTE | 2022-07-05 10:07 | NUR ---
STARTED TRANSUFION OF PRBC PER ORDERS. PT VERBALIZED UNDERSTANDING OF S/S OF BLOOD REACTION. DENIES QUESTIONS. VSS.
[2022-07-05 10:48] LABS: Source, Urine Foley catheter
--- NOTE | 2022-07-05 10:48 | NUR ---
Pt taken to heart center, will await return.
[2022-07-05 11:18] LABS: Appearance, Urine Clear (Clear); Bilirubin, Urine Neg (Neg); Blood, Urine Neg (Neg); Color, Urine Yellow (P-Yellow); Glucose Qualitative, Urine Neg (Neg); Ketones, Urine Neg (Neg); Leukocyte Esterase, Urine Neg (Neg); Nitrite, Urine Neg (Neg); Protein, Urine Neg (Neg); Specific Gravity, Urine 1.015 (1.003-1.022); Urobilinogen, Urine NORM (Normal)
--- NOTE | 2022-07-05 12:45 | NUR ---
UPDATE: Pt returned to room. R radial sight with TR band in place. No S/S of oozing, bleeding or hematoma noted. R groin site with dressing clean, dry and intact. No signs of bleeding, oozing, swelling or hematoma. Pt wheezy with crackles throughout. Biox >95% on 2L per NC. RT doing breathing tx. and plan for C-Pap when treatment completed. Pt seems slightly confused but follows directions. Son's at bedside. Call light in reach. Will continue to monitor.
--- NOTE | 2022-07-05 18:17 | NUR ---
Shift Summary: Pt dozing on and off in room. Pt came back from labor utilization superintendent around 1230 with R radial and R groin sight. Both sites without issues. R TR band is off. Pt has denied chest pain throughout the day. Pt has had crackles and wheezing throughout the day. Required C-PAP after return for heart center, tolerated well. Back on 2 L per NC at this time which is her home dose. No other changes this shift. Will report to night RN.
--- NOTE | 2022-07-06 05:59 | NUR ---
SHIFT SUMMARY ASSUMED CARE OF PT AT 1900. PT IS A/OX3 BUT FORGETFUL. PT THOUGHT THIS NURSE WAS NER DAUGHTER, AND WOULD FORGET SHE IS IN THE HOSPITAL. HEART SOUNDS REGULAR. LUNG SOUDNS COURSE, PT WAS ON 2-3L NC. PT DID NOT TOLERATE THE CPAP, THINKING THAT IT WAS SUFFICATING HER. PT HAS A DUNN, DRAIING CLEAR YELLOW URINE. PT L HIP DRESSING C/D/I. R RADIAL AND GROIN SITE WNL. PT L ARM IS SEVERLY BRUISED, PT C/O PAIN IN HER SHOULDER, MEDICATED PER EMAR.
[2022-07-06 08:06] LABS: BASOPHILS ABSOLUTE AUTO 0.04 K/mm3 (0.00-0.23); BASOPHILS PERCENT AUTO 1 % (0-2); EOSINOPHILS ABSOLUTE AUTO 0.16 K/mm3 (0.00-0.68); EOSINOPHILS PERCENT AUTO 2 % (0-6); Hematocrit 27.3 % (33.0-51.0); Hemoglobin 8.9 g/dL (11.5-16.0); IMMATURE GRAN ABSOLUTE AUTO 0.13 K/mm3 (0.00-0.10); IMMATURE GRAN PERCENT AUTO 2 % (0-1); LYMPHOCYTES ABSOLUTE AUTO 0.86 K/mm3 (0.84-5.20); LYMPHOCYTES PERCENT AUTO 10 % (21-46); MONOCYTES ABSOLUTE AUTO 0.76 K/mm3 (0.16-1.47); MONOCYTES PERCENT AUTO 9 % (4-13); Mean Corpuscular HGB 31.1 pg (26.0-34.0); Mean Corpuscular HGB Conc 32.6 g/dL (31.5-36.5); Mean Corpuscular Volume 96 fL (80-100); Mean Platelet Volume 11.1 fL (9.1-12.4); NEUTROPHILS ABSOLUTE AUTO 6.59 K/mm3 (1.96-9.15); NEUTROPHILS PERCENT AUTO 77 % (41-73); NRBC ABSOLUTE 0.03 K/mm3 (0.00-0.02); NRBC Auto 0.4 /100 WBC (0.0-0.2); Platelet Count 166 K/mm3 (150-400); RDW Coefficient Variation 15.3 % (11.7-14.2); RDW Standard Deviation 53.1 fL (35.1-46.3); Red Blood Cell Count 2.86 M/mm3 (3.80-5.20); White Blood Cell Count 8.54 K/mm3 (4.00-11.30)
[2022-07-06 08:25] LABS: Anion Gap 6 mmol/L (6-16); Blood Urea Nitrogen 25 mg/dL (8-24); Bun/Creatinine Ratio 37.7 (12.0-20.0); CHOL/HDL RATIO 2.5; CO2, Blood 30 mmol/L (21-32); Calcium, Blood 8.5 mg/dL (8.5-10.1); Chloride, Blood 106 mmol/L (98-108); Cholesterol 65 mg/dL (50-200); Creatinine, Blood 0.66 mg/dL (0.40-1.00); Glomerular Filtration Rate 88 (60-); Glucose, Blood 103 mg/dL (70-99); HDL Cholesterol 26 mg/dL (>39); LDL/HDL RATIO 0.7; Low Density Lipoprotein Chol 17 mg/dL (0-110); Potassium, Blood 3.3 mmol/L (3.5-5.5); Sodium, Blood 142 mmol/L (136-145); Triglycerides 108 mg/dL (30-160); Very Low Density Lipoprot Chol 21 mg/dL (6-32)
--- NOTE | 2022-07-06 17:53 | NUR ---
SHIFT SUMMARY; ASSUMED CARE AT 0700. A/A/OX2-3. INTERMITANT CONFUSION. LEFT ARM IN SLING FROM FX, LEFT HIP DRSSING CLEAN/DRY AND INTACT. RIGHT WRIST AND RIGHT GROIN SITE NON BRUISED, NO HEMATOMA. WORKED WITH PT TODAY AND ENCOURAGED SITTING IN CHAIR. MOVED TO CHAIR WITH 2 PERSON ASSIST. DUNN IN PLACE. 02 DEMANDS INCREASED THIS AM TO 4L. NOTIFIED PROVIDER, 40MG IV LASIX GIVEN. 02 VIA NC 3L AT THIS TIME, SATS 97%. NO ACUTE MEDICAL CHANGES, WILL CONTINUE TO MONITOR AND TREAT. REPORT TO SURGICAL FLOOR RN FOR INHOUSE TRANSFER.
--- NOTE | 2022-07-06 18:31 | NUR ---
ARRIVAL TO UNIT PATIENT TO UNIT FROM PCU VIA BED. 3L O2 IN PLACE, SATS >92%, VSS STABLE. X1 AQUACEL TO LEFT HIP, C/D/I, DENIES PAIN AT THIS TIME. LEFT UPPER ARM BRUISED T/O, SLING IN PLACE. ORIENTED TO ROOM & CALL LIGHT. WILL REPORT TO DAKSHA ALEX.
--- NOTE | 2022-07-07 05:14 | NUR ---
COMMUNITY HEALTH AGENT SUMMARY NO ACUTE CHANGES. POD 5 L HIP REPAIR. PT AAOX3, [place] COOPERATIVE. L HIP AQUACEL C/D/I EXCEPT FOR SMALL SPOT OF DRAINAGE. REMAINS ON 3L O2 VIA NC AND HAS SATTED MID TO HIGH 90'S THROUGH THE NIGHT. VSS, WILL CONTINUE TO MONITOR.
[2022-07-07 05:39] LABS: BASOPHILS ABSOLUTE AUTO 0.03 K/mm3 (0.00-0.23); BASOPHILS PERCENT AUTO 0 % (0-2); EOSINOPHILS ABSOLUTE AUTO 0.12 K/mm3 (0.00-0.68); EOSINOPHILS PERCENT AUTO 1 % (0-6); Hematocrit 28.3 % (33.0-51.0); Hemoglobin 8.9 g/dL (11.5-16.0); IMMATURE GRAN ABSOLUTE AUTO 0.19 K/mm3 (0.00-0.10); IMMATURE GRAN PERCENT AUTO 2 % (0-1); LYMPHOCYTES ABSOLUTE AUTO 0.88 K/mm3 (0.84-5.20); LYMPHOCYTES PERCENT AUTO 10 % (21-46); MONOCYTES PERCENT AUTO 7 % (4-13); Mean Corpuscular HGB 30.8 pg (26.0-34.0); Mean Corpuscular HGB Conc 31.4 g/dL (31.5-36.5); Mean Corpuscular Volume 98 fL (80-100); Mean Platelet Volume 11.1 fL (9.1-12.4); NEUTROPHILS ABSOLUTE AUTO 6.74 K/mm3 (1.96-9.15); NEUTROPHILS PERCENT AUTO 79 % (41-73); Platelet Count 167 K/mm3 (150-400); RDW Coefficient Variation 14.9 % (11.7-14.2); RDW Standard Deviation 52.3 fL (35.1-46.3); Red Blood Cell Count 2.89 M/mm3 (3.80-5.20); White Blood Cell Count 8.56 K/mm3 (4.00-11.30)
[2022-07-07 06:01] LABS: Bun/Creatinine Ratio 37.7 (12.0-20.0); Creatinine, Blood 0.58 mg/dL (0.40-1.00); Potassium, Blood 3.1 mmol/L (3.5-5.5)
[2022-07-07 10:45] LABS: SARS-Cov-2 (COVID-19) PCR, MMC NEGATIVE (NEGATIVE)
--- NOTE | 2022-07-07 10:57 | NUR ---
DISCHARGE PATIENT CLEARED TO DISCHARGE TO SNF TODAY. EATING & DRINKNING WELL, DUNN IN PLACE DRAINING WELL. PATIENT REPORTS PAIN TO BE MANAGED PER EMAR. X1 AQUACEL DRESSING TO LEFT HIP, C/D/I & CHANGED TODAY. EXTRA DRESSINGS SENT WITH PATIENT TO SNF. [facility]
== END 2022-07-07 11:31 | disposition home or self-care (01) | DRG 480 ==
LOC: ER 09:22 → SURS 14:47 → PCU 14:47 → SURS 14:47 → PCU 07-04 23:35 → SURS 07-06 18:25
PROVIDERS: Internal Medicine; Internal Medicine Cardiovascular Disease; Orthopaedic Surgery; Pharmacist; ADMIT Family Medicine
PROC: 0QH734Z Insertion of Internal Fixation Device into Left Upper Femur, Percutaneous Approach (ICD-10-PCS; principal; 2022-07-01 12:30)
PROC: 4A023N8 Measurement of Cardiac Sampling and Pressure, Bilateral, Percutaneous Approach (ICD-10-PCS; 2022-07-05)
PROC: B2111ZZ Fluoroscopy of Multiple Coronary Arteries using Low Osmolar Contrast (ICD-10-PCS; 2022-07-05)
PROC: 30233N1 Transfusion of Nonautologous Red Blood Cells into Peripheral Vein, Percutaneous Approach (ICD-10-PCS; 2022-07-05)
PROC: 5A09357 Assistance with Respiratory Ventilation, Less than 24 Consecutive Hours, Continuous Positive Airway Pressure (ICD-10-PCS; 2022-07-06)
DX: S72.002A Fracture of unspecified part of neck of left femur, initial encounter for closed fracture (principal); I21.4 Non-ST elevation (NSTEMI) myocardial infarction; J96.21 Acute and chronic respiratory failure with hypoxia; S42.212A Unspecified displaced fracture of surgical neck of left humerus, initial encounter for closed fracture; N39.0 Urinary tract infection, site not specified; N17.9 Acute kidney failure, unspecified; J84.9 Interstitial pulmonary disease, unspecified; J44.9 Chronic obstructive pulmonary disease, unspecified; F41.9 Anxiety disorder, unspecified; F32.A Depression, unspecified; E11.9 Type 2 diabetes mellitus without complications; D63.8 Anemia in other chronic diseases classified elsewhere; W01.0XXA Fall on same level from slipping, tripping and stumbling without subsequent striking against object, initial encounter; I27.21 Secondary pulmonary arterial hypertension; R33.9 Retention of urine, unspecified; Z20.822 Contact with and (suspected) exposure to COVID-19; G47.33 Obstructive sleep apnea (adult) (pediatric); E78.00 Pure hypercholesterolemia, unspecified; B96.20 Unspecified Escherichia coli [E. coli] as the cause of diseases classified elsewhere; Z79.899 Other long term (current) drug therapy; Z79.84 Long term (current) use of oral hypoglycemic drugs; Z79.51 Long term (current) use of inhaled steroids; Z98.890 Other specified postprocedural states; Z87.891 Personal history of nicotine dependence; Z79.82 Long term (current) use of aspirin; Z79.2 Long term (current) use of antibiotics; Z79.891 Long term (current) use of opiate analgesic
CPT/HCPCS: 29105; 36415; 36430; 71045; 71260; 73030; 73502; 73562-LT; 80048; 80061; 80069; 81001; 81003; 82947; 83735; 84145; 84484; 85014; 85018; 85025; 85520; 85610; 85730; 86850; 86900; 86901; 86923; 87077; 87086; 87186; 92526; 92610; 93005; 93010; 93306; 93460; 94640; 94660; 94664; 94760; 94762; 96374-59; 96375-59; 97110; 97162; 97166; 97530; 97535; 99152; 99153; 99285-25; A9270; C1713; C1751; C1769; C1894; J0153; J0690; J0696; J1170; J1644; J1650; J1885; J1940; J2250; J2270; J2370; J2704; J3010; J7030; J7040; P9016; Q9967; U0004

== ENCOUNTER → 2022-08-18 | Outpatient (CLI) | payer MEDICARE, OTHER ==
[2022-08-18 16:26] LABS: Magnesium, Blood 1.7 mg/dL (1.6-2.4)
[2022-08-18 16:30] LABS: Bun/Creatinine Ratio 24.4 (12.0-20.0); Calcium, Blood 9.8 mg/dL (8.5-10.1); Creatinine, Blood 0.7 mg/dL (0.40-1.00); Potassium, Blood 3.7 mmol/L (3.5-5.5)
== END ==
LOC: LAB SHORT 13:25
PROVIDERS: Internal Medicine Cardiovascular Disease
DX: I27.20 Pulmonary hypertension, unspecified (principal); I25.10 Atherosclerotic heart disease of native coronary artery without angina pectoris; I10 Essential (primary) hypertension
CPT/HCPCS: 80048; 83735

== ENCOUNTER → 2024-03-18 | Outpatient (CLI) | payer MEDICARE, OTHER ==
[~2024-03-18] MED LIST changes: +AMOCLA875 PO; +AZIT250 PO; +Amlodipine Bes2.5 MG PO; +Aspir 8181 MG PO; +HYDCHL25 PO; +MIRALAX17 GM PO; +PRED20 PO; +SODIUM PHOSPHA100 GM; +THERA-D2000 UNIT PO
[2024-03-18 12:56] LABS: Appearance, Urine Hazy (Clear); Bilirubin, Urine Neg (Neg); Blood, Urine Neg (Neg); Color, Urine Yellow (P-Yellow); Glucose Qualitative, Urine Neg (Neg); Ketones, Urine Neg (Neg); Leukocyte Esterase, Urine 2+ (Neg); Nitrite, Urine Neg (Neg); Protein, Urine Neg (Neg); Specific Gravity, Urine 1.015 (1.003-1.022); Urobilinogen, Urine NORM (Normal)
[2024-03-18 13:36] LABS: Red Blood Cells, Urine Not Seen /hpf (0-2)
[2024-03-18 13:37] LABS: Amorphous Heavy (0-Heavy); Bacteria Mod /hpf; Squamous Epithelial Cells Rare /hpf (Few)
== END | disposition home or self-care (01) ==
LOC: LAB 09:25 → LAB SHORT 09:25
PROVIDERS: Physician Assistant
DX: N39.0 Urinary tract infection, site not specified (principal)
CPT/HCPCS: 81001; 87086

== ENCOUNTER → 2024-03-24 | Outpatient (CLI) | payer MEDICARE, OTHER ==
[2024-03-24 16:58] LABS: BASOPHILS ABSOLUTE AUTO 0.07 K/mm3 (0.00-0.23); BASOPHILS PERCENT AUTO 1 % (0-2); EOSINOPHILS ABSOLUTE AUTO 0.13 K/mm3 (0.00-0.68); EOSINOPHILS PERCENT AUTO 2 % (0-6); Hematocrit 40.1 % (33.0-51.0); Hemoglobin 12.7 g/dL (11.5-16.0); IMMATURE GRAN ABSOLUTE AUTO 0.07 K/mm3 (0.00-0.10); IMMATURE GRAN PERCENT AUTO 1 % (0-1); LYMPHOCYTES ABSOLUTE AUTO 1.69 K/mm3 (0.84-5.20); LYMPHOCYTES PERCENT AUTO 20 % (21-46); MONOCYTES ABSOLUTE AUTO 0.52 K/mm3 (0.16-1.47); MONOCYTES PERCENT AUTO 6 % (4-13); Mean Corpuscular HGB 31.5 pg (26.0-34.0); Mean Corpuscular HGB Conc 31.7 g/dL (31.5-36.5); Mean Corpuscular Volume 100 fL (80-100); Mean Platelet Volume 9.2 fL (9.1-12.4); NEUTROPHILS ABSOLUTE AUTO 5.91 K/mm3 (1.96-9.15); NEUTROPHILS PERCENT AUTO 71 % (41-73); Platelet Count 240 K/mm3 (150-400); RDW Coefficient Variation 13.4 % (11.7-14.2); Red Blood Cell Count 4.03 M/mm3 (3.80-5.20); White Blood Cell Count 8.39 K/mm3 (4.00-11.30)
[2024-03-24 17:05] LABS: Bun/Creatinine Ratio 16.9 (12.0-20.0); Creatinine, Blood 0.83 mg/dL (0.40-1.00); Potassium, Blood 4.3 mmol/L (3.5-5.5)
== END | disposition home or self-care (01) ==
LOC: LAB SHORT 16:55
PROVIDERS: Physician Assistant Surgical
DX: R41.0 Disorientation, unspecified (principal)
CPT/HCPCS: 80048; 85025

== ENCOUNTER → 2024-03-25 | Outpatient (CLI) | payer MEDICARE, OTHER ==
[2024-03-25 16:07] LABS: Source, Urine Voided
[2024-03-25 18:58] LABS: Appearance, Urine Hazy (Clear); Bilirubin, Urine Neg (Neg); Blood, Urine Neg (Neg); Color, Urine Yellow (P-Yellow); Glucose Qualitative, Urine Neg (Neg); Ketones, Urine Neg (Neg); Leukocyte Esterase, Urine 3+ (Neg); Nitrite, Urine Neg (Neg); Protein, Urine 1+ (Neg); Specific Gravity, Urine 1.025 (1.003-1.022); Urobilinogen, Urine NORM (Normal)
[2024-03-25 19:52] LABS: Bacteria Many /hpf; Mucus Light (0-Heavy); Squamous Epithelial Cells Few /hpf (Few); Transitional Epithelial Cells Rare /hpf (0-Rare)
[2024-03-25 19:53] LABS: Amorphous Light (0-Heavy); Calcium Oxalate Crystals Many /hpf; Red Blood Cells, Urine 0-2 /hpf (0-2)
== END | disposition home or self-care (01) ==
LOC: LAB SHORT 16:04
PROVIDERS: Physician Assistant
DX: N39.0 Urinary tract infection, site not specified (principal)
CPT/HCPCS: 81001; 87086

== ENCOUNTER → 2024-05-13 | Outpatient (CLI) | payer MEDICARE, OTHER ==
[2024-05-13 12:50] LABS: Source, Urine Voided
[2024-05-13 15:38] LABS: Appearance, Urine Hazy (Clear); Bilirubin, Urine Neg (Neg); Blood, Urine Neg (Neg); Color, Urine Yellow (P-Yellow); Glucose Qualitative, Urine Neg (Neg); Ketones, Urine Neg (Neg); Leukocyte Esterase, Urine 2+ (Neg); Nitrite, Urine Neg (Neg); Protein, Urine 1+ (Neg); Specific Gravity, Urine 1.025 (1.003-1.022); Urobilinogen, Urine NORM (Normal)
[2024-05-13 16:01] LABS: Bacteria Many /hpf; Calcium Oxalate Crystals Mod /hpf; Red Blood Cells, Urine 0-2 /hpf (0-2); Squamous Epithelial Cells Few /hpf (Few)
== END ==
LOC: LAB 12:47 → LAB SHORT 12:47
PROVIDERS: Physician Assistant
DX: N39.0 Urinary tract infection, site not specified (principal)
CPT/HCPCS: 81001; 87086